=== PATIENT | female | born 1990 | race African-American/Black ===

== ENCOUNTER 2017-12-10 16:37 | Emergency (ER) | payer MEDICAID ==
[~2017-12-10] VITALS: Ht 162.6 cm; Wt 90.9 kg
[2017-12-10 16:56] VITALS: BP 123/79
[2017-12-10] MEDS ORDERED: LIDOCAINE-MPF 1%, 5ML INFIL ONE (17:00)
[2017-12-10] MEDS ORDERED: LIDOCAINE-MPF 1%, 5ML ONE (17:17)
[2017-12-10 17:26] LABS: MEAN CORPUSCULAR HEMOGLOBIN 28.1 pg (27.0-34.8); MEAN CORPUSCULAR HGB CONC 33.3 g/dL (32.4-35.8); MEAN CORPUSCULAR VOLUME 84.5 fL (80-100); MEAN PLATELET VOLUME 8.2 fL (7.4-10.4); PLATELET COUNT 345 x10^3/uL (130-400); RED BLOOD COUNT 4.47 x10^6/uL (3.82-5.3)
[2017-12-10] MEDS ORDERED: PLEASE ENTER HEIGHT AND WEIGHT MC SCH (17:30)
[2017-12-10 17:34] LABS: ALBUMIN 3.7 g/dL (3.4-5.0); ANION GAP 8 mmol/L (5-15); CHLORIDE 110 mmol/L (98-107); CREATININE 0.83 mg/dL (0.55-1.02)
[2017-12-10] MEDS ORDERED: LIDOCAINE-MPF 1%, 2ML ONE ×2 (17:41)
[2017-12-10 17:59] LABS: MD YES
[2017-12-10 18:05] LABS: EOS#(MANUAL) 0.21 x10^3/uL (0.0-0.4); EOS% (MANUAL) 2 % (1-7); MONOS#(MANUAL) 0.32 x10^3/uL (0.3-2.7); MONOS% (MANUAL) 3 % (2-9); SEG#(MANUAL) 5.83 x10^3/uL (1.8-6.8); SEGS% (MANUAL) 55 % (42-75)
[2017-12-10 18:07] LABS: <PLATELET ESTIMATE> ADEQUATE; <PLT MORPHOLOGY> NORMAL PLT MORPH; <RBC MORPHOLOGY> NORMAL
[2017-12-10 18:18] LABS: LYMPH#(MANUAL) 3.82 x10^3/uL (1-3.4); LYMPHS% (MANUAL) 36 % (22-44); REACTIVE LYMPHS # (MANUAL) 0.42 x10^3/uL (0-0); REACTIVE LYMPHS % (MANUAL) 4 % (0-0)
== END 2017-12-10 18:37 | disposition home or self-care (01) ==
LOC: ED 17:02
DX: L02.213 Cutaneous abscess of chest wall (principal); L02.416 Cutaneous abscess of left lower limb
CPT/HCPCS: 10061; 36415; 80048; 82040; 85025; 99284